=== PATIENT | female | born 1985 | race African-American/Black ===

== ENCOUNTER 2019-08-28 11:54 | Emergency (ER) | payer SELFPAY ==
[2019-08-28] MEDS ORDERED: SILVER SULFADIAZINE 1% 25 GM TOP ONE (12:23)
[2019-08-28] MEDS ORDERED: HYDROCODONE/APAP 5/325 MG TAB ONE (12:57)
[2019-08-28] MEDS ORDERED: BACITRACIN OINTMENT 15 GM TUBE TOP ONE (13:00)
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
[2019-08-28 13:45] VITALS: O2SAT 100
[2019-08-28 13:46] VITALS: BP 110/69; TEMP 98
== END 2019-08-28 13:34 | disposition home or self-care (01) ==
LOC: ER 11:54
DX: T22.211A Burn of second degree of right forearm, initial encounter (principal); T31.0 Burns involving less than 10% of body surface; X13.1XXA Other contact with steam and other hot vapors, initial encounter; Y93.89 Activity, other specified; Y92.9 Unspecified place or not applicable; F17.210 Nicotine dependence, cigarettes, uncomplicated
CPT/HCPCS: 99283

== ENCOUNTER 2023-02-16 11:16 | Emergency (ER) | payer OTHER, SELFPAY ==
--- OUTSIDE RECORDS SUMMARY | 2023-02-16 11:20 | XMS REPORT | Continuity of Care Document ---
:1985 Author Organization [facility] t Address [address] [place] [address] [place] [id number] Care Team Providers Name Role Phone BENITA CADET Primary Care Physician Unavailable BRIGITTE DELGADO Attending Clinician Unavailable BENITA CADET Attending Clinician Unavailable Priscilla Eller Attending Clinician PRISCILLA WORTHINGTON Attending Clinician Unavailable Provider, [facility] Attending Clinician Unavailable Benita Cadet CNM Attending Clinician Sandra Brigitte CHILEL Attending Clinician [phone] Doctor Unassigned, [place] Attending Clinician Unavailable CHER LORA Attending Clinician Unavailable SHANIQUA ROBIN Attending Clinician Unavailable SHANIQUA ROBIN Attending Clinician Unavailable Pob, [facility] Main Attending Clinician Unavailable NIKKI HYATT Attending Clinician Unavailable Nikki Hyatt NP Attending Clinician Karolyn Azevedo Attending Clinician [phone] KAROLYN EAST Attending Clinician Unavailable Geno MCNULTY, Cher García Attending Clinician Cristi Ozuna DO Attending Clinician Conchita MCNULTY, Marla Smallwood Attending Clinician Lab, [facility] Attending Clinician Unavailable MARLA ARANGO Attending Clinician Unavailable [facility], [facility] Attending Clinician Unavailable NIKKI HYATT Admitting Clinician Unavailable Payers Payer Name Policy Type Policy Number Effective Date Expiration Date Chetna john [employer] [id number] 2022 00:00:00 Problems Condition Condition Condition Status Onset Resolution Last Treating Co mments Source Name Details Category Date Date Treatment Clinician Date Elevated Elevated Disease Active Unive rs blood blood 2-18 ity of pressure pressure 00:00: [place] reading reading 00 Medical without without Branch diagnosis diagnosis of of hypertensi hypertensi on on Other Other Disease Active Univers general general 707 [place] of counseling [place] advice and advice 00 Nd dical for for Branch contracept contracept migue migue management management Pre-concep Pre-concep Disease Active U nivers tion tion 4-19 [place] of counseling [place] 00 [facility] [place] Vaginal Vaginal Disease Active Univers bleeding bleeding 4-19 ity of 00:00: [place] 00 [facility] Branch Threatened Threatened Disease Active U nivers 4-19 ity of 00:00: [place] [facility] Branch Miscarriag Miscarriag Disease Active U nivers e e 4-07 ity of 00:00: [place] 00 Medical Branch Encounter Encounter Disease Active Uni vers for for 4-07 ity of surveillan surve[place]an [place] of ce of 00 Medical contracept contracept Br anch migue pills migue pills Gonococcal Gonococcal Disease Active 2019- U nivers infection infection 0-02 ity of (acute) of (acute[place] of [place] 00 Medical genitourin genitourin Br anch elaina tract elaina tract Screening Screening Disease Active Uni vers examinatio examinatio 7-31 it y of n for STD n [place] STD [place] ([place]ually (sexually 00 Medi winifred transmitte transmitte Br anch d disease) d disease) BMI BMI Disease Active 2019-0 Univers 32.0-32.9, 32.0-32.9, 1-07 it y of adult adult 00:00: [address] Tobacco Tobacco Disease Active 2018-07 Univers use use 2-19 ity of disorder disorder 00:00: [address] Vaginal Vaginal Disease Active 2017-07 Univers discharge discharge 0-24 ity of 00:00: [address] Allergies, Adverse Reactions, Alerts Allergy Allergy Status Severity Reaction(s) Onset Inactive Treating Comm ents Source Name Type Date Date Clinician NO KNOWN Drug Active Univers ALLERGIE Class ity of S [facility] Social History Social Habit Start Date Stop Date Quantity Comments Source History of tobacco 1999-07-30 Cigarette Smoker University of use 00:00:00 [facility] History SDOH University o f Alcohol Frequency [facility] edical Branch History SDOH University o f Alcohol Std Drinks [facility] History SDWA University o f Alcohol Binge [place] Medic al Branch Gender identity Universit y of [facility] Sexual orientation Univer sity of [facility] Alcohol intake 2023-01-26 2023-01-26 Current drinker Unive rsity of 00:00:00 00:00:00 of alcohol [facility] (finding) [place] Exposure to 2022-08-27 2022-09-06 Not sure University of SARS-CoV-2 (event) 00:00:00 10:53:00 [facility] Tobacco Comment 2022-09-06 2022-09-06 uses puff bar Univer sity of 00:00:00 00:00:00 [facility] Tobacco use and 2022-09-06 2022-09-06 Smokeless tobacco Un iversity of exposure 00:00:00 00:00:00 non-user [facility] History of Social 2022-09-06 2022-09-06 Univers ity of function 00:00:00 00:00:00 [facility] Alcohol Comment 2012-12-13 2012-12-13 occasional Universit y of 00:00:00 00:00:00 [facility] Sex [birth year] At [birth year] Universit y of 00:00:00 00:00:00 [facility] Smoking Status Start Date Stop Date Source Ex-smoker 2022-09-06 00:00:00 2022-09-06 00:00:00 Universi ty of [facility] Medications Ordered Filled Start Stop Current Ordering Indication Dosage Frequency Signature Comments Components Source Medication Medication Date Date Medication? Clinician (SIG) Name Name Nitrofurant 2022- Yes [id number] 100mg Take 1 Univers oin&Nit. 01-30 capsule by ity of [place] (MACROBID[place] 00 :00 the Medical 100 mg morning Branch capsule and 1 capsule in the evening. Do all this for 7 days. Nitrofurant 2022- Yes [id number] 100mg Take 1 Univers oin&Nit. 01-30 capsule by ity of [place] 00:00: 04:[place] (MACROBID[place] 00 :00 the Medical 100 mg morning Branch capsule and 1 capsule in the evening. Do all this for 7 days. fluconazole 2022- Yes [id number] 150mg Take 1 Univers (DIFLUCAN) 01-30 tablet by ity of 150 mg 00:00: 04:59 [place] tablet 00 :00 now for 1 Medical dose. Branch metroNIDAZO Yes [id number] Take 4 Univers LE (FLAGYL) 7-06 tabs po ity o f 500 mg 00:00: now X 1 [place] tablet 00 dose Medical Branch metroNIDAZO Yes [id number] Take 4 Univers LE (FLAGYL) 7-06 tabs po ity o f 500 mg 00:00: now X 1 [place] tablet 00 dose Medical Branch metroNIDAZO Yes [id number] Take 4 Univers LE (FLAGYL) 7-06 tabs po ity o f 500 mg 00:00: now X 1 [place] tablet 00 dose Medical Branch metroNIDAZO Yes [id number] Take 4 Univers LE (FLAGYL) 7-06 tabs po ity o f 500 mg 00:00: now X 1 [place] tablet 00 dose Medical Branch clindamycin 2022- No [id number] 300mg Take 1 Univers 300 mg -09-14 capsule by ity of capsule 00:00: 05:59 mouth 4 [place] 00 :00 (four) Medical times [place] daily for 7 days. clindamycin 3- No [id number] 300mg Take 1 Univers 300 mg 2-14 - capsule by ity of capsule 00:00: 05:59 mouth 4 [place] 00 :00 (four) Medical times [place] daily for 7 days. metroNIDAZO 0 Yes [id number] 500mg Take 1 Univers LE 500 mg 7-11 tablet by ity o f tablet 00:00: mouth in [place] 00 the Medical morning Branch and 1 tablet in the evening. metroNIDAZO 0 Yes [id number] 500mg Take 1 Univers LE 500 mg 7-11 tablet by ity o f tablet 00:00: mouth in [place] 00 the Medical morning Branch and 1 tablet in the evening. metroNIDAZO 0 2022- No [id number] 500mg Take 1 Univers LE 500 mg 7-11 -14 tablet by ity of tablet 00:00: 00:00 mouth in [place] 00 :00 the Medical morning Branch and 1 tablet in the evening. metroNIDAZO 0 2022- No [id number] 500mg Take 1 Univers LE 500 mg 7-11 -14 tablet by ity of tablet 00:00: 00:00 mouth in [place] 00 :00 the Medical morning Branch and 1 tablet in the evening. Immunizations Ordered Filled Immunization Date Status Comments [facility] e Immunization Name Name Influenza Virus 2022-05-05 Completed Universit y of Vaccine Quad IM, 00:00:00 [place] Me dical Preserv and ABX Branch Free 6 MO-64 YRS Influenza Virus 2022-05-05 Completed Universit y of Vaccine Quad IM, 00:00:00 [place] Me dical Preserv and ABX Branch Free 6 MO-64 YRS Influenza Virus 2022-05-05 Completed Universit y of Vaccine Quad IM, 00:00:00 [place] Me dical Preserv and ABX Branch Free 6 MO-64 YRS Influenza Virus 2022-05-05 Completed Universit y of Vaccine Quad IM, 00:00:00 [place] Me dical Preserv and ABX Branch Free 6 MO-64 YRS Influenza Virus 2022-05-05 Completed Universit y of Vaccine Quad IM, 00:00:00 [place] Me dical Preserv and ABX Branch Free 6 MO-64 YRS Influenza Virus 2022-05-05 Completed Universit y of Vaccine Quad IM, 00:00:00 [facility] dical Preserv and ABX Branch Free 6 MO-64 YRS SARS-COV-2 COVID-19 2021-07-08 Completed Unive rsity of VACCINE - (MODERNA) 00:00:00 [facility] SARS-COV-2 COVID-19 2021-07-08 Completed Unive rsity of VACCINE - (MODERNA) 00:00:00 [facility] SARS-COV-2 COVID-19 2021-07-08 Completed Unive rsity of VACCINE - (MODERNA) 00:00:00 [facility] SARS-COV-2 COVID-19 2021-07-08 Completed Unive rsity of VACCINE - (MODERNA) 00:00:00 [facility] SARS-COV-2 COVID-19 2021-07-08 Completed Unive rsity of VACCINE - (MODERNA) 00:00:00 [facility] SARS-COV-2 COVID-19 2021-07-08 Completed Unive rsity of VACCINE - (MODERNA) 00:00:00 [facility] TDAP (ADACEL) 2019-07-30 Completed University of VACCINE 00:00:00 [facility] Influenza Virus 2019-07-30 Completed Universit y of Vaccine Quad .5 mL 00:00:00 [facility] 6+ MO Branch TDAP (ADACEL) 2019-07-30 Completed University of VACCINE 00:00:00 [facility] Influenza Virus 2019-07-30 Completed Universit y of Vaccine Quad .5 mL 00:00:00 [facility] 6+ MO Branch TDAP (ADACEL) 2019-07-30 Completed University of VACCINE 00:00:00 [facility] Influenza Virus 2019-07-30 Completed Universit y of Vaccine Quad .5 mL 00:00:00 [facility] 6+ MO Branch TDAP (ADACEL) 2019-07-30 Completed University of VACCINE 00:00:00 [facility] Influenza Virus 2019-07-30 Completed Universit y of Vaccine Quad .5 mL 00:00:00 [facility] 6+ MO Branch TDAP (ADACEL) 2019-07-30 Completed University of VACCINE 00:00:00 [facility] Influenza Virus 2019-07-30 Completed Universit y of Vaccine Quad .5 mL 00:00:00 [facility] IM 6+ MO Branch TDAP (ADACEL) 2019-07-30 Completed University of VACCINE 00:00:00 [facility] Influenza Virus 2019-07-30 Completed Universit y of Vaccine Quad .5 mL 00:00:00 [place] Medical IM 6+ MO Branch TDAP (ADACEL) 2019-07-30 Completed University of VACCINE 00:00:00 [facility] Influenza Virus 2019-07-30 Completed Universit y of Vaccine Quad .5 mL 00:00:00 [place] Medical IM 6+ MO Branch TDAP (ADACEL) 2019-07-30 Completed University of VACCINE 00:00:00 [facility] Influenza Virus 2019-07-30 Completed Universit y of Vaccine Quad .5 mL 00:00:00 [facility] 6+ MO Branch Influenza Virus 2017-05-29 Completed Universit y of Vaccine Quad IM 3+ 00:00:00 [facility] Influenza Virus 2017-05-29 Completed Universit y of Vaccine Quad IM 3+ 00:00:00 [facility] Influenza Virus 2017-05-29 Completed Universit y of Vaccine Quad IM 3+ 00:00:00 [facility] Influenza Virus 2017-05-29 Completed Universit y of Vaccine Quad IM 3+ 00:00:00 [facility] Influenza Virus 2017-05-29 Completed Universit y of Vaccine Quad IM 3+ 00:00:00 [facility] Influenza Virus 2017-05-29 Completed Universit y of Vaccine Quad IM 3+ 00:00:00 [facility] Influenza Virus 2017-05-29 Completed Universit y of Vaccine Quad IM 3+ 00:00:00 [facility] Influenza Virus 2017-05-29 Completed Universit y of Vaccine Quad IM 3+ 00:00:00 [facility] Td 2007-12-14 Completed University of 00:00:00 [facility] TD, NOS 2007-12-14 Completed University of 00:00:00 [facility] TD, NOS 2007-12-14 Completed University of 00:00:00 [facility] TD, NOS 2007-12-14 Completed University of 00:00:00 [facility] TD, NOS 2007-12-14 Completed University of 00:00:00 [facility] TD, NOS 2007-12-14 Completed University of 00:00:00 [facility] TD, NOS 2007-12-14 Completed University of 00:00:00 [facility] TD, NOS 2007-12-14 Completed University 00:00:00 [facility] Vital Signs Vital Name Observation Time Observation Value Comments Source Systolic blood 2023-01-26 13:59:00 119 mm[Hg] Univer sity of pressure [facility] Diastolic blood 2023-01-26 13:59:00 66 mm[Hg] Unive rsity of [facility] Heart rate 2023-01-26 13:59:00 75 /min Universi ty of [facility] Body temperature 2023-01-26 13:59:00 37 [facility] ersity of [facility] Respiratory rate 2023-01-26 13:59:00 17 /min [facility] ersity of [facility] Body height 2023-01-26 13:59:00 165.1 cm Universi ty of [facility] Body weight 2023-01-26 13:59:00 99.02 kg Universi ty of [facility] BMI 2023-01-26 13:59:00 36.33 kg/m2 Universi ty of [facility] Systolic blood 2022-09-06 16:55:00 139 mm[Hg] Univer sity of [facility] Diastolic blood 2022-09-06 16:55:00 96 mm[Hg] Unive rsity of [facility] Heart rate 2022-09-06 16:55:00 79 /min Universi ty of [facility] Body temperature 2022-09-06 16:55:00 36.28 [facility] ersity of [facility] Respiratory rate 2022-09-06 16:55:00 18 /min [facility] ersity of [facility] Body height 2022-09-06 16:55:00 165.1 cm Universi ty of [place] [facility] [place] Body weight 2022-09-06 16:55:00 95.89 kg Universi ty of [facility] BMI 2022-09-06 16:55:00 35.18 kg/m2 Universi ty of [facility] Procedures Procedure Date / Time Performed Performing Clinician [facility] e POCT TEST 2023-01-26 14:14:00 Priscilla Worthington [facility] GALV ONLY - VAGINAL 2022-09-06 19:11:00 Benita Cadet [facility] [place] [facility] PATHOGENS BY NUCLEIC Medical [facility] ACID TESTING Encounters Start End Encounter Admission Attending Care Care Encounter Source Date/Time Date/Time Type Type Clinicians Facility Department ID 2023-02-16 2023-02-16 Outpatient Ricky CADET [facility] [id number] Univers 13:30:00 13:30:00 BENITA harvey [facility] 2023-01-31 2023-01-[address] [facility] [id number] Univers 00:00:00 00:00:00 Priscilla Smith FITTING ROOM ASSOCIATE 350.1.13.10 ity of [facility] 4.2.7.2.686 [place] as MATERNAL [phone] Med ical & CHILD [address] [place] [address] 2023-01-30 2023-01-30 [facility] [id number] Univers 00:00:00 00:00:00 Management Priscilla Smith FITTING ROOM ASSOCIATE 350.1.13.10 ity of [facility] 4.2.7.2.686 [place] as MATERNAL [id number] [facility] ical & CHILD [address] [place] [address] 2023-01-26 2023-01-26 Outpatient Ricky WORTHINGTON [facility] [id number] Univers 08:30:00 09:47:02 PRISCILLA rodriguez [facility] 2023-01-26 2023-01-26 Office [facility] [id number] Univers 08:30:00 09:47:02 Visit Priscilla Smith FITTING ROOM ASSOCIATE 350.1.13.10 ity of [facility] 4..7.2.686 [place] as MATERNAL [id number] [facility] [address] [place] [address] 2022-09-06 2022-09-06 Outpatient Ricky CADET [facility] [id number] Univers 10:30:00 11:33:03 BENITA harvey [facility] 2022-09-06 2022-09-06 Office [facility] 1 .2.840.114 [id number] Univers 10:30:00 11:33:03 Visit Benita Cadet FITTING ROOM ASSOCIATE 350.1.13.1 0 ity of REGIONAL 4.2.7.2.686 [place] as MATERNAL [id number] [facility] & CHILD [address] [place] [address] 2022-09-01 2022-09-01 Telephone [facility] [id number] Univers 00:00:00 00:00:00 Brigitte C FITTING ROOM ASSOCIATE 350.1.13.10 ity of [facility] 4.2.7.2.686 [place] as MATERNAL [id number] [facility] CHILD [address] [place] [address] 2022-01-31 2022-01-31 Telephone [facility] [id number] [facility] 00:00:00 00:00:00 Brigitte C FITTING ROOM ASSOCIATE 350.1.13.10 ity of [facility] 4.2.7.2.686 [place] MATERNAL [id number] [address] [place] [address] 2022-01-27 2022-01-27 [facility] [id number] Univers 09:00:00 09:54:28 BRIGITTE rodriguez [facility] 2022-01-27 2022-01-27 [facility] [id number] Univers 09:00:00 09:54:28 Visit Brigitte Cerna FITTING ROOM ASSOCIATE 350.1.13.10 ity of [facility] 4.2.7.2.686 [place] as MATERNAL [id number] [facility] CHILD [address] [place] [address] 2022-01-27 2022-01-27 Orders Doctor WOLFF [id number] Univers 00:00:00 00:00:00 Only Unassigned, LETITIA 350.1.13.10 ity of [place] [facility] 4.2.7.2.686 [place] as [id number] [address] 2022-01-07 2022-01-07 Outpatient R GENO [facility] [id number] Univers 09:00:00 09:00:00 CHER rodriguez [facility] 2021-11-16 2021-11-16 Outpatient R SHANIQUA ROBIN [facility] B [id number] Univers 14:30:00 14:30:00 SHANIQUA ROBIN [facility] 2021-11-16 2021-11-16 Outpatient R SHANIQUA ROBIN [facility] B [id number] Univers 14:30:00 14:30:00 SHANIQUA ROBIN [facility] 2021-11-13 2021-11-13 Outpatient R SHANIQUA ROBIN [facility] B [id number] Univers 08:15:00 08:15:00 SHANIQUA ROBIN [facility] 2021-11-10 2021-11-10 Automation Tester Paul, Fredy Lab Main [facility] [id number] Univers 12:15:00 12:30:00 Visit Shaniqua RobinFRANK 350.1.13. 10 ity [facility] 4.2.7.2.686 [place] PROFESSIO [id number] N[address] 2021-11-10 2021-11-10 Outpatient R SHANIQUA ROBIN [facility] B [id number] Univers 12:15:00 12:15:00 SHANIQUA ROBIN [facility] 2021-11-10 2021-11-10 Case Yumiko [facility] 1.2.840.114 [id number] Univers 00:00:00 00:00:00 Management Valreiamax BEN 350.1.13.10 ity of [place] 4[place]2.7.2.686 [place] [id number] [address] 2021-11-09 2021-11-09 Office [facility] 1.2.840.114 [id number] Univers 14:00:00 15:02:49 Visit Shaniqua CONTRERAS 350.1.13.10 it y of [place] 4[place]2.7.2.[place] [id number] [address] 2021-11-09 2021-11-09 Outpatient R SHANIQUA ROBIN [facility] B [id number] Univers 14:00:00 15:02:49 SHANIQUA ROBIN [facility] 2021-11-09 2021-11-09 Outpatient R SHANIQUA ROBIN [facility] B [id number] Univers 14:00:00 14:00:00 SHANIQUA ROBIN [facility] 2021-11-09 2021-11-09 Orders Doctor MARIELLA 1.2.840.114 [id number] Univers 00:00:00 00:00:00 Only Unassigned, LETITIA 350.1.13.10 [facility] 4.2.7.2.686 [place] as [id number] [address] 2021-11-05 2021-11-05 Outpatient R SHANIQUA ROBIN [facility] B [id number] Univers 08:30:00 08:30:00 SHANIQUA ROBIN [facility] 2021-11-05 2021-11-05 Outpatient R SHANIQUA ROBIN [facility] B [id number] Univers 08:30:00 08:30:00 SHANIQUA ROBIN [facility] 2021-10-31 2021-11-01 Emergency X [facility], [facility] ERT [id number] Univers 22:53:00 01:52:00 NIKKI harvey [facility] 2021-10-31 2021-11-01 Emergency [facility] [id number] Univers 22:53:00 01:52:00 Nikki MARSH 350.1.13.10 ity [facility] 4.2.7.2.686 [facility] [id number] [facility] 084 Branch 2021-10-31 2021-10-31 Orders Doctor MARIELLA 1.2.840.114 [id number] Univers 00:00:00 00:00:00 Only Unassigned, LETITIA 350.1.13.[address] [facility] 4.2.7.2.686 [place] as [phone] [facility] 009 Branch 2021-05-03 2021-05-03 Routine Provider[facility] 1 .2.840.114 [id number] Univers 13:58:01 14:37:27 Karolyn East O FITTING ROOM ASSOCIATE 350.1.13 .10 ity of Visit REGIONAL 4.2.7.2.686 [place] as MATERNAL [id number] [facility] & CHILD [address] [place] [address] 2021-05-03 2021-05-03 Outpatient R ALEXEY [facility] [id number] Univers 14:00:00 14:00:00 ALINADeborah candice danis rodriguez [facility] 2021-01-11 2021-01-11 Office [facility] 1.2.840.114 [id number] Univers 09:15:25 10:16:45 Visit Cher R FITTING ROOM ASSOCIATE 350.1.13.10 ity of REGIONAL 4.2.7.2.686 [place] as MATERNAL [id number] [facility] & [address] 2021-01-11 2021-01-11 Outpatient Ricky LORA [facility] [id number] Univers 09:00:00 09:00:00 KLEVERTREVONMALATHILuis candice o [facility] 2020-10-28 2020-10-28 [facility] 1.2.840.114 [id number] Univers 10:07:14 10:31:45 Visit Cher García FITTING ROOM ASSOCIATE 350.1.13.10 ity of REGIONAL 4.2.7.2.686 [place] as MATERNAL [id number] [address] 2020-10-28 2020-10-28 Outpatient [facility] [id number] Univers 10:15:00 10:15:00 KLEVERTREVONMALATHILuis candice o f [facility] 2020-10-12 2020-10-[address] [facility] 1.2.840.114 [id number] Univers 00:00:00 00:00:00 Outreach Cristi SALAZAR 350.1.13.10 i ty of Tejinder [facility] 4.2.7.2.686 Jessica GRACIA [id number] [address] 2020-07-31 2020-07-[address] [facility] 1.2.840.114 [id number] Univers 00:00:00 00:00:00 Marla Smallwood FITTING ROOM ASSOCIATE 350.1.13.10 it y of [facility] 4.2.7.2.686 [place] as MATERNAL [id number] [facility] ical & CHILD [address] [place] [address] 2020-07-30 2020-07-30 Office [facility] [id number] Univers 09:00:32 10:05:44 Visit Marla Smallwood FITTING ROOM ASSOCIATE 350.1.13.10 it y of [facility] 4.2.7.2.686 [place] as MATERNAL [id number] [facility] ical & CHILD [address] [place] [address] 2020-07-30 2020-07-30 Automation Tester Lab, [facility] 1.2.840. 114 [id number] Univers 08:30:05 08:45:05 Visit Marla Arango FITTING ROOM ASSOCIATE 350.1.13.10 ity of [facility] 4.2.7.2.686 [place] as MATERNAL [id number] [facility] & CHILD [address] [place] [address] 2020-07-30 2020-07-30 Outpatient R [facility] [id number] Univers 08:30:00 08:30:00 ity of [facility] 2020-07-30 2020-07-30 Orders Doctor MARIELLA [id number] Univers 00:00:00 00:00:00 Only Unassigned, LETITIA 350.1.13.10 ity of [place] [facility] [id number] Sanchez as [phone] [address] 2020-07-30 2020-07-30 Letter [facility] [id number] Univers 00:00:00 00:00:00 (Out) Marla Smallwood FITTING ROOM ASSOCIATE 350.1.13.10 it y of [facility] [id number] Sanchez as MATERNAL [phone] [facility] [address] [place] [address] 2020-07-14 2020-07-14 Telephone [facility] [id number] Univers 00:00:00 00:00:00 Brigitte Cerna FITTING ROOM ASSOCIATE 350.1.13.10 ity of [facility] [id number] Sanchez as MATERNAL [phone] [facility] [address] [place] [address] 2020-05-25 2020-05-25 [facility]phone [facility] 1.2.840.114 [id number] Univers 00:00:00 00:00:00 Brigitte Cerna FITTING ROOM ASSOCIATE 350.1.13.10 ity of [place] [id number] Sanchez [address] MATERNAL [phone] [facility] CHILD [address] [place] [address] 2020-05-22 2020-05-22 Office [facility] [id number] Univers 13:54:34 14:09:34 Visit Brigitte Cerna FITTING ROOM ASSOCIATE 350.1.13.10 ity of [address]686 Sanchez as MATERNAL [phone] [facility] & [address] 2020-05-22 2020-05-22 Outpatient R SANDRA [facility] [id number] Univers 13:00:00 13:00:00 BRIGITTE starky o f [facility] 2020-05-22 2020-05-22 Orders Doctor MARIELLA [id number] [id number] Univers 00:00:00 00:00:00 Only Unassigned, LETITIA 350.1.13.10 ity of [place] [address]2.686 Sanchez as [phone] [address] 2020-05-21 2020-05-21 Outpatient R CONCHITA [facility] [id number] Univers 08:00:00 08:00:00 MARLA harvey [facility] 2020-05-13 2020-05-[address] [facility] [id number] Univers 00:00:00 00:00:00 Marla Smallwood FITTING ROOM ASSOCIATE [id number] it y of [facility] [id number] Sanchez as MATERNAL [phone] [facility] & CHILD [address] [place] [address] 2020-04-30 2020-04-30 Nurse Visit, [facility] Nurse [facility] 1.2 .840.114 [id number] Univers 08:40:43 09:14:50 Visit Breanne Arangoily N FITTING ROOM ASSOCIATE 350.1.13.10 ity of [facility] [id number] Sanchez as MATERNAL [phone] [facility] & CHILD [address] [place] [address] 2020-04-30 2020-04-30 Outpatient R [facility] [id number] Univers 08:30:00 08:30:00 ity [facility] 2020-04-24 2020-04-24 Telephone [facility] 1.2.840.114 [id number] Univers 00:00:00 00:00:00 Marla Cl FITTING ROOM ASSOCIATE 350.1.13.10 it y of [facility] [id number] Sanchez as MATERNAL [phone] [facility] [address] [place] [address] 2020-04-23 2020-04-23 Office [facility] [id number] Univers 14:31:15 14:53:30 Visit Marla Smallwood FITTING ROOM ASSOCIATE 350.1.13.10 it y of [facility] [id number] Sanchez as MATERNAL [phone] [facility] [address] [place] [address] 2020-04-23 2020-04-23 [facility] [id number] Univers 14:30:00 14:30:00 MARLA [facility] 2020-02-28 2020-02-28 [facility] 1.2.840.114 [id number] Univers 00:00:00 00:00:00 Brigitte C FITTING ROOM ASSOCIATE 350.1.13.10 ity of [facility] [id number] Sanchez as MATERNAL [phone] [facility] [address] [place] [address] 2020-02-24 2020-02-24 [facility] 1.2.840.114 [id number] Univers 00:00:00 00:00:00 Brigitte C FITTING ROOM ASSOCIATE 350.1.13.10 ity of [facility] [id number] Sanchez as MATERNAL [phone] [facility] [address] [place] [address] 2020-02-21 2020-02-21 Office [facility] [id number] Univers 15:58:03 16:39:50 Visit Brigitte Cerna FITTING ROOM ASSOCIATE 350.1.13.10 ity of [facility] [id number] Sanchez as MATERNAL [phone] [facility] ical & CHILD [address] [place] [address] 2020-02-21 2020-02-21 [facility] [id number] Univers 16:00:00 16:00:00 BRIGITTE harvey o f [facility] 2020-01-16 2020-01-16 [facility] [id number] Univers 08:15:00 08:15:00 MARLA harvey [facility] 2020-01-06 2020-01-06 Telephone [facility] 1.2.840.114 [id number] Univers 00:00:00 00:00:00 Amrla Cl FITTING ROOM ASSOCIATE 350.1.13.10 it y of [facility] [id number] Sanchez as MATERNAL [phone] [facility] & [address] 2018-01-13 2018-01-13 Outpatient [facility] [id number] [address] [place] [address] 00:00:00 00:00:00 [facility] Results Test Description Test Time Test Comments Results Result Comments Source POCT TEST 2023-01-26 14:14:00 Test Item Value Reference Range Interpretation Comme nts POCT PREG (test code = 1605) Negative On board controls acceptable with C Line (test code = 3574) Yes POCT PREG LOT # (test code = 3575) POCT PREG TEST DATE (test code = 3576) [id number] 14:14:00 Test Item Value Reference Range Interpretation Comments POCT PREG (test code = 1605) Negative On board controls acceptable with C Yes Line (test code = 3574) POCT PREG LOT # (test code = 3575) POCT PREG TEST DATE (test code = 3576) [facility]
[2023-02-16] MEDS ORDERED: KETOROLAC 30 MG/ML INJ ONE (12:13)
[2023-02-16] MEDS ORDERED: dexAMETHasone 10 MG/ML VIAL ONE (12:13)
[2023-02-16 12:21] LABS: SARS-CoV-2 Antigen Rapid Res Negative (Negative)
--- NOTE | 2023-02-16 12:31 | EDPHYS ---
Physician Documentation [facility] Name: Coco Caballero Age: 38 yrs Sex: Female : 1985 Arrival Date: 02/16/2023 Time: 11:16 Bed 7 Private MD: ED Physician Alfonso Shea HPI: 02/16 11:42 This 38 yrs old Black Female presents to ER via Ambulatory with complaints of Ear Pain, pm1 Sore Throat. 11:42 The patient presents with sore throat. The patient describes throat pain as constant, pm1 raw, scratchy. Onset: The symptoms/episode began/occurred yesterday. Severity of symptoms: in the emergency department the symptoms are actually worse. 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 Associated signs and symptoms: Pertinent positives: earache. The patient has not recently seen a physician. 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 - Social history:: Smoking status: Reported history of juuling and/or vaping. ROS: 11:42 Constitutional: Negative for fever, chills, and weight loss. pm1 11:42 Cardiovascular: Negative for chest pain, palpitations, and edema, Respiratory: Negative for shortness of breath, cough, wheezing, and pleuritic chest pain, MS/Extremity: Negative for injury and deformity, Skin: Negative for injury, rash, and discoloration, Neuro: Negative for headache, weakness, numbness, tingling, and seizure. 11:42 ENT: Positive for ear pain, sore throat. 11:42 All other systems are negative. Exam: 11:42 Constitutional: This is a well developed, well nourished patient who is awake, alert, pm1 and in no acute distress. Head/Face: Normocephalic, atraumatic. 11:42 Skin: Warm, dry with normal turgor. Normal color with no rashes, no lesions, and no evidence of cellulitis. MS/ Extremity: Pulses equal, no cyanosis. Neurovascular intact. Full, normal range of motion. 11:42 ENT: External ear(s): no acute changes, Ear canal(s): no acute changes, TM's: bulging, on the right, Left TM not visibile due to cerumen, Mouth: no acute changes, Lips: normal, moist, Oral mucosa: normal, pink and intact, moist, Posterior pharynx: Tonsils: bilaterally enlarged, with erythema, no exudate, no ulcerations, peritonsillar mass, is not appreciated, pooling of secretions, is not appreciated, Voice: no acute changes. 11:42 Cardiovascular: Exam negative for acute changes, Rate: normal, Rhythm: regular, Pulses: no pulse deficits are appreciated. 11:42 Respiratory: Exam negative for acute changes, respiratory distress, shortness of breath. 11:42 Neuro: Exam negative for acute changes, Orientation: is normal, Mentation: is normal, Motor: is normal, moves all fours, Gait: is steady, at a normal pace, without difficulty. Vital Signs: 11:52 BP 114 / 76; Pulse 82; Resp 16; Temp 98.4; Pulse Ox 100% on R/A; Weight 98.43 kg; iw Height 5 ft. 5 in. ; Pain 7/10; 12:42 BP 104 / 78; Pulse 78; Resp 16; Pulse Ox 100% ; Pain 7/10; cm10 11:52 Body Mass Index 36.11 (98.43 kg, 165.1 cm) iw 11:52 Pain Scale: Adult iw 12:42 Pain Scale: Adult cm10 MDM: 11:33 Patient medically screened. pm1 12:04 Differential diagnosis: Strep pharyngitis, COVID, influenza, viral pharyngitis. pm1 12:30 Data reviewed: vital signs. pm1 12:30 Counseling: I had a detailed discussion with the patient and/or guardian regarding: the pm1 historical points, exam findings, and any diagnostic results supporting the discharge/admit diagnosis, lab results, the need for outpatient follow up, to return to the emergency department if symptoms worsen or persist or if there are any questions or concerns that arise at home. 12:30 I considered the following discharge prescriptions or medication management in the pm1 emergency department Medications were administered in the Emergency Department. See MAR. 12:30 Care significantly affected by the following Social Determinants of Health: Poor access pm1 to healthcare and/or lack of insurance. 02/16 11:40 Order name: Strep; Complete Time: 12:20 pm1 02/16 11:40 Order name: SARS RAPID; Complete Time: 12:29 pm1 02/16 11:40 Order name: Flu; Complete Time: 12:29 pm1 Administered Medications: 12:04 Not Given (Patient Refused): Ibuprofen PO 600 mg PO once me1 12:10 Drug: Dexamethasone IM 10 mg Route: IM; Site: left gluteus; cm10 12:42 Follow up: Response: No adverse reaction cm10 12:10 Drug: Ketorolac IM 60 mg Route: IM; Site: right gluteus; cm10 12:42 Follow up: Response: No adverse reaction; Pain is decreased cm10 Disposition Summary: 02/16/23 12:30 Discharge Ordered Location: Home pm1 Problem: new pm1 Symptoms: have improved pm1 Condition: Stable pm1 Diagnosis - Otalgia, bilateral pm1 - Streptococcal pharyngitis pm1 Followup: pm1 - With: Emergency Department - When: As needed - Reason: Worsening of condition Followup: pm1 - With: Private Physician - When: 2 - 3 days - Reason: Recheck today's complaints, Continuance of care, Re-evaluation by your physician Discharge Instructions: - Discharge Summary Sheet pm1 - Earache, Adult pm1 - Strep Throat, Adult pm1 Forms: - Medication Reconciliation Form pm1 - Thank You Letter pm1 - Antibiotic Education pm1 - Prescription Opioid Use pm1 - Patient Portal Instructions pm1 Prescriptions: - Amoxicillin 500 mg Oral Capsule - take 1 capsule by ORAL route every 8 hours for 10 days; 30 tablet; Refills: 0, pm1 Product Selection Permitted - Diclofenac Sodium 75 mg Oral tablet,delayed release (DR/EC) - take 1 tablet by ORAL route 2 times per day As needed; 30 tablet; Refills: 0, pm1 Product Selection Permitted Signatures: Dispatcher [employer] Antonia Quispe RN RN Jeremías Cotton NP HOME HEALTH OCCUPATIONAL THERAPIST pm1 Kathleen Rider RN RN 10 Imelda Haji RN ok1
--- NOTE | 2023-02-16 12:31 | ER ---
Nurse's Notes [facility] Name: Coco Caballero Age: 38 yrs Sex: Female : 1985 Arrival Date: 02/16/2023 Time: 11:16 Bed 7 Private MD: Diagnosis: Otalgia, bilateral;Streptococcal pharyngitis Presentation: 02/16 11:50 Chief complaint: Patient states: feels like she has strep, can't eat, can't swallow iw since yesterday and has niles ear pain. Coronavirus screen: At this time, the client does not indicate any symptoms associated with coronavirus-19. Ebola Screen: Patient negative for fever greater than or equal to 101.5 degrees Fahrenheit, and additional compatible Ebola Virus Disease symptoms Patient denies exposure to infectious person. Patient denies travel to an Ebola-affected area in the 21 days before illness onset. No symptoms or risks identified at this time. Initial Sepsis Screen: Does the patient meet any 2 criteria? No. Patient's initial sepsis screen is negative. Does the patient have a suspected source of infection? No. Patient's initial sepsis screen is negative. Risk Assessment: Do you want to hurt yourself or someone else? Patient reports no desire to harm self or others. Onset of symptoms was February 15, 2023. 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 - Social history:: Smoking status: Reported history of juuling and/or vaping. Screenin:19 [facility] ED Fall Risk Assessment (Adult) History of falling in the last 3 months, cm10 including since admission No falls in past 3 months (0 pts) Confusion or Disorientation No (0 pts) Intoxicated or Sedated No (0 pts) Impaired Gait No (0 pts) Mobility Assist Device Used No (0 pt) Altered Elimination No (0 pt) Score/Fall Risk Level 0 - 2 = Low Risk Oriented to surroundings, Maintained a safe environment, Hourly rounding (assess needs \T\ fall precautionary measures) done. Abuse screen: Denies threats or abuse. Denies injuries from another. Nutritional screening: No deficits noted. Tuberculosis screening: No symptoms or risk factors identified. Assessment: 12:18 General: Appears in no apparent distress. comfortable, Behavior is calm, cooperative. cm10 Pain: Complains of pain in throat and right ear. Neuro: No deficits noted. Level of Consciousness is awake, alert, obeys commands, Oriented to person, place, time, situation. Respiratory: No deficits noted. Airway is patent Respiratory effort is even, unlabored, Respiratory pattern is regular, symmetrical. EENT: Reports pain in throat. Vital Signs: 11:52 BP 114 / 76; Pulse 82; Resp 16; Temp 98.4; Pulse Ox 100% on R/A; Weight 98.43 kg; iw Height 5 ft. 5 in. ; Pain 7/10; 12:42 BP 104 / 78; Pulse 78; Resp 16; Pulse Ox 100% ; Pain 7/10; cm10 11:52 Body Mass Index 36.11 (98.43 kg, 165.1 cm) iw 11:52 Pain Scale: Adult iw 12:42 Pain Scale: Adult cm10 ED Course: 11:19 Patient arrived in ED. im 11:33 Jeremías Cotton NP is PHCP. pm1 11:33 Alfonso Shea MD is Attending Physician. pm1 11:51 Triage completed. iw 11:51 Arm band placed on. iw 11:52 Antonia Taylor, RN is Primary Nurse. iw 12:05 Flu Sent. me1 12:05 SARS RAPID Sent. me1 12:05 Strep Sent. me1 12:19 Patient has correct armband on for positive identification. Bed in low position. Call cm10 light in reach. Provided Education on: N/A. Pulse ox on. NIBP on. 12:19 No provider procedures requiring assistance completed. Patient did not have IV access cm10 during this emergency room visit. 12:20 Primary Nurse role handed off by Antonia Taylor, RN cm10 12:20 Kathleen Rider, RN is Primary Nurse. cm10 Administered Medications: 12:04 Not Given (Patient Refused): Ibuprofen PO 600 mg PO once me1 12:10 Drug: Dexamethasone IM 10 mg Route: IM; Site: left gluteus; cm10 12:42 Follow up: Response: No adverse reaction cm10 12:10 Drug: Ketorolac IM 60 mg Route: IM; Site: right gluteus; cm10 12:42 Follow up: Response: No adverse reaction; Pain is decreased cm10 Medication: 12:43 VIS not applicable for this client. cm10 Outcome: 12:30 Discharge ordered by MD. pm1 12:43 Discharged to home ambulatory. cm10 12:43 Condition: good 12:43 Discharge instructions given to patient, Instructed on discharge instructions, follow up and referral plans. medication usage, Demonstrated understanding of instructions, follow-up care, medications, Prescriptions given X 2. 12:43 Patient left the ED. cm10 Signatures: Antonia Taylor, RN RN Jeremías Pickett NP GEOLOGICAL SAMPLE TESTER pm1 Ankita Oconnor Clarissa RN RN cm10 Imelda Haji RN RN tn1
[2023-02-16 12:49] VITALS: TEMP 98.4; O2SAT 100
[2023-02-16 12:50] VITALS: BP 104/78
== END 2023-02-16 12:43 | disposition home or self-care (01) ==
LOC: ER 11:16
DX: J02.0 Streptococcal pharyngitis (principal); Z20.822 Contact with and (suspected) exposure to COVID-19
CPT/HCPCS: 36415; 87081; 87804 ×2; 96372; 99284; 87811; J1100